=== PATIENT | male | born 1945 | race Caucasian/White ===

== ENCOUNTER 2017-04-08 12:22 | Emergency (ER) | payer MEDICARE, OTHER ==
[~2017-04-08] VITALS: Ht 180.3 cm; Wt 104.1 kg
[~2017-04-08 12:22] MED LIST: ASPI-611 PO; BISO1TAB32 PO; GLUC100015; TAMS-1 PO
--- OUTSIDE RECORDS SUMMARY | 2017-04-08 12:26 | XMS REPORT | Referral Summary ---
Author Author [facility] Organization [facility] Address Unknown Phone Unavailable Care Team Providers Care Clothing Patternmaker Name Role Phone Fly Gil Primary Care Physician [phone] Encounter Date(s): 05/31/15 - 05/31/15 [facility] [address] [id number] Discharge Diagnosis: BPH (benign prostatic hyperplasia) Discharge Disposition: 01-Home or Self Care Attending Physician: Devendra Hardwick MD Admitting Physician: Devendra Hardwick MD Vital Signs Most recent to 1 oldest [Reference Range]: Blood Pressure 124/74 mmHg [90-140/60-90 mmHg] (05/31/15 8:28 AM) Problem List Condition Effective Dates Status Health Status Informant BPH (benign Active prostatic hyperplasia)(Confirm ed) Hematuria(Confirmed) Active 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 ) Essential Active ; HTN(Confirmed) Hyperlipidemia(Confi Active rmed) Hypertension(Confirm Active ed) Primary generalized Active (osteo)arthritis(Con firmed) Lumbar disc Active herniation(Confirmed ) Lumbosacral Active spondylosis(Confirme d) Lumbosacral Active spondylosis without myelopathy (disorder)(Confirmed ) Obesity(Confirmed) Active patient Obesity(Confirmed) Active patient Obesity(Confirmed) Active patient Spinal stenosis of Active lumbar region (disorder)(Confirmed ) Thoracic or Active lumbosacral neuritis or radiculitis(Confirme d) Allergies, Adverse Reactions, Alerts Substance Reaction Severity Status azithromycin hives rash Active Medications aspirin 81 mg oral tablet 1 tabs, Oral, Daily, 0 Refill(s) Start Date: 05/13/14 Status: Ordered Chondroitin-Glucosamine 1 caps, Oral, Daily, 0 Refill(s) Start Date: 05/13/14 Status: Ordered Flomax 0.4 mg oral capsule See Instructions, TAKE ONE CAPSULE BY MOUTH ONCE A DAY, # 90 caps, 3 Refill(s), eRx: [facility] #[id number], TAKE ONE CAPSULE BY MOUTH ONCE A DAY Start Date: 09/23/14 Status: Ordered lisinopril 10 mg oral tablet 10 mg 1 tabs, Oral, Daily, # 30 tabs, 0 Refill(s) Start Date: 04/21/15 Status: Ordered Results No data available for this section Immunizations No data available for this section Procedures Procedure Date Related Diagnosis Body Site Measurement of post-voiding residual urine 05/31/15 and/or bladder capacity by ultrasound, non-imaging Cystoscopy with Transurethral Prostatect1 08/13/14 Transforaminal approach - Right L4-5, L5-S1 09/02/13 Transforaminal approach Left L4-5, L5-S1 08/18/13 Cystoscopy Functional endoscopic sinus surgery - polypectomy of nasal sinus Tonsillectomy 1auto-populated from documented surgical case Social History Social History Type Response Smoking Status Former smoker; Type: Cigarettes; Number of years: 25 Assessment and Plan Extracted from: Title: Ambulatory Patient Education Author: Devendra Hardwick MD Date: Family Medicine Benign Prostatic Hyperplasia An enlarged prostate (benign prostatic hyperplasia ) is common in older men. You may experience the following: Weak urine stream. Dribbling. Feeling like the bladder has not emptied completely. Difficulty starting urination. Getting up frequently at night to urinate. Urinating more frequently during the day. HOME CARE INSTRUCTIONS Monitor your prostatic hyperplasia for any changes. The following actions may help to alleviate any discomfort you are experiencing: Give yourself time when you urinate. Stay away from alcohol. Avoid beverages containing caffeine, such as coffee, tea, and sadie, because they can make the problem worse. Avoid decongestants, antihistamines, and some prescription medicines that can make the problem worse. Follow up with your health care provider for further treatment as recommended. SEEK MEDICAL CARE IF: You are experiencing progressive difficulty voiding. Your urine stream is progressively getting narrower. You are awaking from sleep with the urge to void more frequently. You are constantly feeling the need to void. You experience loss of urine, especially in small amounts. SEEK IMMEDIATE MEDICAL CARE IF: You develop increased pain with urination or are unable to urinate. You develop severe abdominal pain, vomiting, a high fever, or fainting. You develop back pain or blood in your urine. MAKE SURE YOU: Understand these instructions. Will watch your condition. Will get help right away if you are not doing well or get worse. Document Released: 10/29/2006 Document Revised: 07/01/2014 Document Reviewed: [facility] Patient Information 2014 [employer] [facility]. No follow up information was provided. Extracted from: Title: Office Visit Note Author: Devendra Hardwick MD Date: 05/31/15 Assessment/Plan BPH (benign prostatic hyperplasia) Future Scheduled TestsReferral* Return to Clinic 02/16/15 12:16 PM Referrals to Other Providers Referred by: Jonathan White MD
--- OUTSIDE RECORDS SUMMARY | 2017-04-08 12:26 | XMS REPORT | Referral Summary ---
Author Author [facility] Organization [facility] Address Unknown Phone Unavailable Care Team Providers Care Medical Claims Assistant Name Role Phone Fly Gil Primary Care Physician [phone] Encounter [facility] Date(s): 04/21/15 - 04/21/15 [facility], [address] [place] [address]- Discharge Disposition: 01-Home or Self Care Attending Physician: Fer Gil MD Admitting Physician: Fer Gil MD Vital Signs Most recent to 1 oldest [Reference Range]: Blood Pressure 120/60 mmHg [90-140/60-90 mmHg] (04/21/15 11:01 AM) Problem List Condition Effective Dates Status [...] DAY, # 90 caps, 3 Refill(s), [id number], TAKE ONE CAPSULE BY MOUTH ONCE A DAY Start Date: 10/20/15 Status: Ordered lisinopril 10 mg oral tablet 10 mg 1 tabs, Oral, Daily, # 30 tabs, 0 Refill(s) Start Date: 04/21/15 Status: Ordered Results No data available for this section Immunizations No data available for this section Procedures Procedure Date Related Diagnosis Body Site Cystoscopy with Transurethral Prostatect1 08/13/14 Transforaminal approach - Right L4-5, L5-S1 09/02/13 Transforaminal approach Left L4-5, L5-S1 08/18/13 Cystoscopy Functional endoscopic sinus surgery - polypectomy of nasal sinus Tonsillectomy 1auto-populated from documented surgical case Social History Social History Type Response Smoking Status Former smoker; Type: Cigarettes; Number of years: 25 Assessment and Plan Extracted from: Title: Ambulatory Patient Education Author: Fer Gil MD Date: 08/26 Family Medicine Hypertension As your heart beats, it forces blood through your arteries. This force is your blood pressure. If the pressure is too high, it is called hypertension (HTN) or high blood pressure. HTN is dangerous because you may have it and not know it. High blood pressure may mean that your heart has to work harder to pump blood. Your arteries may be narrow or stiff. The extra work puts you at risk for heart disease, stroke, and other problems. Blood pressure consists of two numbers, a higher number over a lower, 110/72, for example. It is stated as "110 over 72." The ideal is below 120 for the top number (systolic ) and under 80 for the bottom (diastolic ). Write down your blood pressure today. You should pay close attention to your blood pressure if you have certain conditions such as: Heart failure. Prior heart attack. Diabetes Chronic kidney disease. Prior stroke. Multiple risk factors for heart disease. To see if you have HTN, your blood pressure should be measured while you are seated with your arm held at the level of the heart. It should be measured at least twice. A one-time elevated blood pressure reading (especially in the Emergency Department) does not mean that you need treatment. There may be conditions in which the blood pressure is different between your right and left arms. It is important to see your caregiver soon for a recheck. Most people have essential hypertension which means that there is not a specific cause. This type of high blood pressure may be lowered by changing lifestyle factors such as: Stress. Smoking. Lack of exercise. Excessive weight. Drug/tobacco/alcohol use. Eating less salt. Most people do not have symptoms from high blood pressure until it has caused damage to the body. Effective treatment can often prevent, delay or reduce that damage. TREATMENT When a cause has been identified, treatment for high blood pressure is directed at the cause. There are a large number of medications to treat HTN. These fall into several categories, and your caregiver will help you select the medicines that are best for you. Medications may have side effects. You should review side effects with your caregiver. If your blood pressure stays high after you have made lifestyle changes or started on medicines, Your medication(s) may need to be changed. Other problems may need to be addressed. Be certain you understand your prescriptions, and know how and when to take your medicine. Be sure to follow up with your caregiver within the time frame advised ( usually within two weeks) to have your blood pressure rechecked and to review your medications. If you are taking more than one medicine to lower your blood pressure, make sure you know how and at what times they should be taken. Taking two medicines at the same time can result in blood pressure that is too low. SEEK IMMEDIATE MEDICAL CARE IF: You develop a severe headache, blurred or changing vision, or confusion. You have unusual weakness or numbness, or a faint feeling. You have severe chest or abdominal pain, vomiting, or breathing problems. MAKE SURE YOU: Understand these instructions. Will watch your condition. Will get help right away if you are not doing well or get worse. Document Released: 10/29/2006 Document Revised: 01/20/2013 Document Reviewed: [employer] Patient Information 2014 [employer]. No follow up information was provided. Extracted from: Title: Office Visit Note Author: Fer Gil MD Date: 04/21/15 Assessment/Plan BPH (benign prostatic hypertrophy) This issue is stable and appropriate refills, lab, and f/u have been discussed. Chronic sinusitis Keflex 500mg po qid for ten days. Prednisone 20mgpo daily for ten days. Hypertension This issue is stable and appropriate refills, lab, and f/u have been discussed. The patient reports their blood pressure has been stable at home and is not having any significant or related problems. There has been no chest pain, chest pressure, soa/redd. Proteinuria This issue is stable and appropriate refills, lab, and f/u have been discussed. Continue with Dr. Shauna Magallanes. Orders: cephalexin, 500 mg 1 caps, Oral, QID, X 10 days, # 40 caps, 0 Refill(s ), Pharmacy: [facility] #[id number], 1 caps Oral QID,x10 days predniSONE, 20 mg 1 tabs, Oral, Daily, X 10 days, # 10 tabs, 0 Refill(s), Pharmacy: [facility] #[id number], 1 tabs Oral Daily,x10 days Future Scheduled TestsReferral* Return to Clinic 02/16/15 12:16 PM Referrals to Other Providers Referred by: Jonathan White MD
--- OUTSIDE RECORDS SUMMARY | 2017-04-08 12:26 | XMS REPORT | Referral Summary ---
Author Author [facility] Organization [facility] Address Unknown Phone Unavailable Care Team Providers Care Back Tacker Name Role Phone LeeannacaseyFly barr Primary Care Physician [phone] Encounter Date(s): 01/10/16 - 01/10/16 [facility] [address] [place] [address] Discharge Diagnosis: Incidental finding of low blood pressure Discharge Diagnosis: Acute sinusitis Discharge Disposition: 01-Home or Self Care Attending Physician: Adilene Fitzgerald PA-C Admitting Physician: Adilene Fitzgerald PA-C Vital Signs Most recent to 1 oldest [Reference Range]: Peripheral Pulse 78 bpm Rate [60-100 bpm] (01/10/16 9:37 AM) Respiratory Rate 18 br/min [14-20 br/min] (01/10/16 9:37 AM) Blood Pressure 98/58 mmHg [90-140/60-90 mmHg] (01/10/16 9:37 AM) Problem List Condition Effective Dates Status Health Status Informant BPH (benign Active prostatic hyperplasia)(Confirm ed) Hematuria(Confirmed) Active 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 ) Essential Active ; HTN(Confirmed) Hyperlipidemia(Confi Active rmed) Hypertension(Confirm Active ed) Primary generalized Active (osteo)arthritis(Con firmed) Lumbar disc Active herniation(Confirmed ) Lumbosacral Active spondylosis without myelopathy (disorder)(Confirmed ) Lumbosacral Active spondylosis(Confirme d) Obesity(Confirmed) Active patient Obesity(Confirmed) Active patient Obesity(Confirmed) Active patient Spinal stenosis of Active lumbar region (disorder)(Confirmed ) Thoracic or Active lumbosacral neuritis or radiculitis(Confirme d) Allergies, Adverse Reactions, Alerts Substance Reaction Severity Status azithromycin hives rash Active Medications aspirin 81 mg oral tablet 1 tabs, Oral, Daily, 0 Refill(s) Start Date: 05/13/14 Status: Ordered Augmentin 875 mg-125 mg oral tablet 1 tabs, Oral, q12hr, X 7 days, # 14 tabs, 0 Refill(s), Pharmacy: [facility] #[id number] Start Date: 01/10/16 Stop Date: 01/17/16 Status: Ordered Chondroitin-Glucosamine 1 caps, Oral, Daily, 0 Refill(s) Start Date: 05/13/14 Status: Ordered Flomax 0.4 mg oral capsule See Instructions, TAKE ONE CAPSULE BY MOUTH ONCE A DAY, # 90 caps, 3 Refill(s), eRx: [facility] #[id number], TAKE ONE CAPSULE BY MOUTH ONCE A DAY Start Date: 10/20/15 Status: Ordered lisinopril 10 mg oral tablet 10 mg 1 tabs, Oral, Daily, # 30 tabs, 0 Refill(s) Start Date: 04/21/15 Status: Ordered niacin 1000 mg oral tablet, extended release 1,000 mg 1 tabs, Oral, Bedtime (once a day), # 90 tabs, 0 Refill(s) Start Date: 01/10/16 Status: Ordered Results No data available for [...] Extracted from: Title: Ambulatory Patient Education Author: Adilene Fitzgerald PA-C Date : 01/10/16 Allergy Sinusitis, Adult Sinusitis is redness, soreness, and inflammation of the paranasal sinuses. Paranasal sinuses are air pockets within the bones of your face. They are located beneath your eyes, in the middle of your forehead, and above your eyes. In healthy paranasal sinuses, mucus is able to drain out, and air is able to circulate through them by way of your nose. However, when your paranasal sinuses are inflamed, mucus and air can become trapped. This can allow bacteria and other germs to grow and cause infection. Sinusitis can develop quickly and last only a short time (acute) or continue over a long period (chronic). Sinusitis that lasts for more than 12 weeks is considered chronic. CAUSES Causes of sinusitis include: Allergies. Structural abnormalities, such as displacement of the cartilage that separates your nostrils (deviated septum), which can decrease the air flow through your nose and sinuses and affect sinus drainage. Functional abnormalities, such as when the small hairs (cilia) that line your sinuses and help remove mucus do not work properly or are not present. SIGNS AND SYMPTOMS Symptoms of acute and chronic sinusitis are the same. The primary symptoms are pain and pressure around the affected sinuses. Other symptoms include: Upper toothache. Earache. Headache. Bad breath. Decreased sense of smell and taste. A cough, which worsens when you are lying flat. Fatigue. Fever. Thick drainage from your nose, which often is green and may contain pus ( purulent). Swelling and warmth over the affected sinuses. DIAGNOSIS Your health care provider will perform a physical exam. During your exam, your health care provider may perform any of the following to help determine if you have acute sinusitis or chronic sinusitis: Look in your nose for signs of abnormal growths in your nostrils (nasal polyps). Tap over the affected sinus to check for signs of infection. View the inside of your sinuses using an imaging device that has a light attached (endoscope). If your health care provider suspects that you have chronic sinusitis, one or more of the following tests may be recommended: Allergy tests. Nasal culture. A sample of mucus is taken from your nose, sent to a lab, and screened for bacteria. Nasal cytology. A sample of mucus is taken from your nose and examined by your health care provider to determine if your sinusitis is related to an allergy. TREATMENT Most cases of acute sinusitis are related to a viral infection and will resolve on their own within 10 days. Sometimes, medicines are prescribed to help relieve symptoms of both acute and chronic sinusitis. These may include pain medicines, decongestants, nasal steroid sprays, or saline sprays. However, for sinusitis related to a bacterial infection, your health care provider will prescribe antibiotic medicines. These are medicines that will help kill the bacteria causing the infection. Rarely, sinusitis is caused by a fungal infection. In these cases, your health care provider will prescribe antifungal medicine. For some cases of chronic sinusitis, surgery is needed. Generally, these are cases in which sinusitis recurs more than 3 times per year, despite other treatments. HOME CARE INSTRUCTIONS Drink plenty of water. Water helps thin the mucus so your sinuses can drain more easily. Use a humidifier. Inhale steam 34 times a day (for example, sit in the bathroom with the shower running). Apply a warm, moist washcloth to your face 34 times a day, or as directed by your health care provider. Use saline nasal sprays to help moisten and clean your sinuses. Take medicines only as directed by your health care provider. If you were prescribed either an antibiotic or antifungal medicine, finish it all even if you start to feel better. SEEK IMMEDIATE MEDICAL CARE IF: You have increasing pain or severe headaches. You have nausea, vomiting, or drowsiness. You have swelling around your face. You have vision problems. You have a stiff neck. You have difficulty breathing. This information is not intended to replace advice given to you by your health care provider. Make sure you discuss any questions you have with your health care provider. Document Released: 10/29/2006 Document Revised: 08/17/2015 Document Reviewed: [facility] Patient Information 2015 [employer]. Family Medicine Hypotension As your heart beats, it forces blood through your arteries. This force is your blood pressure. If your blood pressure is too low for you to go about your normal activities or to support the organs of your body, you have hypotension. Hypotension is also referred to as low blood pressure. When your blood pressure becomes too low, you may not get enough blood to your brain. As a result, you may feel weak, feel lightheaded, or develop a rapid heart rate. In a more severe case, you may faint. CAUSES Various conditions can cause hypotension. These include: Blood loss. Dehydration. Heart or endocrine problems. . Severe infection. Not having a well-balanced diet filled with needed nutrients. Severe allergic reactions (anaphylaxis). Some medicines, such as blood pressure medicine or water pills (diuretics), may lower your blood pressure below normal. Sometimes taking too much medicine or taking medicine not as directed can cause hypotension. TREATMENT Hospitalization is sometimes required for hypotension if fluid or blood replacement is needed, if time is needed for medicines to wear off, or if further monitoring is needed. Treatment might include changing your diet, changing your medicines (including medicines aimed at raising your blood pressure), and use of support stockings. HOME CARE INSTRUCTIONS Drink enough fluids to keep your urine clear or pale yellow. Take your medicines as directed by your health care provider. Get up slowly from reclining or sitting positions. This gives your blood pressure a chance to adjust. Wear support stockings as directed by your health care provider. Maintain a healthy diet by including nutritious food, such as fruits, vegetables, nuts, whole grains, and lean meats. SEEK MEDICAL CARE IF: You have vomiting or diarrhea. You have a fever for more than 23 days. You feel more thirsty than usual. You feel weak and tired. SEEK IMMEDIATE MEDICAL CARE IF: You have chest pain or a fast or irregular heartbeat. You have a loss of feeling in some part of your body, or you lose movement in your arms or legs. You have trouble speaking. You become sweaty or feel lightheaded. You faint. MAKE SURE YOU: Understand these instructions. Will watch your condition. Will get help right away if you are not doing well or get worse. This information is not intended to replace advice given to you by your health care provider. Make sure you discuss any questions you have with your health care provider. Document Released: 10/29/2006 Document Revised: 08/19/2014 Document Reviewed: [facility] Patient Information 2015 [employer]. No follow up information was provided. Extracted from: Title: Office Visit Note- URI Author: Adilene Fitzgerald PA-C Date: Assessment/Plan Acute sinusitis Will treat with Augmentin x 1 week. Also advised trying Flonase nasal spray daily as well. Call if not improving. Ordered: Office Visit Level 4 Est 26796 Incidental finding of low blood pressure For today, I d/w pt to check BP later today. Try and increase fluids today and also add a little salt to the diet today. Is DC'ing Flomaxsoon. Advised to check BP tomorrow AM before taking Lisinopril. If SBP <100, hold lisinopril. RTC ifhaving continuing issues with hypotension, or if sx develop. Ordered: Office Visit Level 4 Est 42668 Orders: amoxicillin-clavulanate, 1 tabs, Oral, q12hr, X 7 days, # 14 tabs, 0 Refill(s), Pharmacy: [facility] #[id number] Future Scheduled TestsReferral* Return to Clinic 02/16/15 12:16 PM Referrals to Other Providers Referred by: Jonathan White MD
--- OUTSIDE RECORDS SUMMARY | 2017-04-08 12:26 | XMS REPORT | Referral Summary ---
Author Author [facility] Organization [facility] Address Unknown Phone Unavailable Care Team Providers Care Aviation Technician Aircraft Name Role Phone LeeannaFly kohli Primary Care Physician [phone] Encounter VC Date(s): 09/15/16 - 09/15/16 [facility] [address] [place] [address] Discharge Disposition: 01-Home or Self Care Attending Physician: Shimon Anderson MD Admitting Physician: Shimon Anderson MD Vital Signs No data available for this section Problem List Condition Effective Dates Status Health [...] 0 Refill(s) Start Date: 05/13/14 Status: Ordered lisinopril 10 mg oral tablet [...] Number of years: 26 Assessment and Plan No data available for this section
--- OUTSIDE RECORDS SUMMARY | 2017-04-08 12:26 | XMS REPORT | Referral Summary ---
Author Author [facility] Organization [facility] Address Unknown Phone Unavailable Care Team Providers Care Executive Director Name Role Phone Fly Gil Primary Care Physician [phone] Encounter Date(s): 05/31/15 - 05/31/15 [facility] [address] [address] Discharge Diagnosis: BPH (benign prostatic hyperplasia) Discharge [...] DAY, # 90 caps, 3 Refill(s), eRx: [facility] #[id number], TAKE ONE CAPSULE BY MOUTH ONCE A [...] Released: 10/29/2006 Document Revised: 07/01/2014 Document Reviewed: [facility] Patient Information 2014 [employer] [facility]. No follow up information was provided. Extracted from: Title: Office Visit Note Author: Devendra Hardwick MD Date: 05/31/15 Assessment/Plan BPH (benign prostatic hyperplasia) Future Scheduled TestsReferral* Return to Clinic 02/16/15 12:16 PM Referrals to Other Providers Referred by: Jonathan White MD
--- OUTSIDE RECORDS SUMMARY | 2017-04-08 12:26 | XMS REPORT | Referral Summary ---
Author Author [facility] Organization [facility] Address Unknown Phone Unavailable Care Team Providers Care Loss Prevention Agent Name Role Phone Fly Gil Primary Care Physician [phone] Encounter Date(s): 05/31/15 - 05/31/15 [facility] [address] [address] Discharge Diagnosis: BPH (benign prostatic hyperplasia) [...] DAY, # 90 caps, 3 Refill(s), eRx: [facility] #[id number], TAKE ONE CAPSULE BY MOUTH ONCE A [...] Released: 10/29/2006 Document Revised: 07/01/2014 Document Reviewed: [facility] Patient Information [address] [employer] [address] [facility]. No follow up information was provided. Extracted from: Title: Office Visit Note Author: Devendra Hardwick MD Date: 05/31/15 Assessment/Plan BPH (benign prostatic hyperplasia) Future Scheduled TestsReferral* Return to Clinic 02/16/15 12:16 PM Referrals to Other Providers Referred by: Jonathan White MD
--- OUTSIDE RECORDS SUMMARY | 2017-04-08 12:26 | XMS REPORT | Continuity of Care Document ---
Author Author Justin HOFFMANN, [facility] Address [address] [place] [address] Phone Care Team Providers Care Conservation Policy Analyst Name Role Phone Fer Gil PP Unavailable Fer Gil RP Unavailable Payers Payer name Insurance type Covered alliance party ID Authorization(s) Unknown Problems Condition Effective Dates (start - stop) Clinical Status Sciatica Due To Displacement Of Lumbar Disc - *Chronic Spinal stenosis of lumbar region - *Chronic Radiculitis, Thoracic or Lumbar - *Chronic Lumbosacral spondylosis without myelopathy - *Chronic Pain in limb - *Acute Gout, unspecified - *Acute Hypertension, Benign - *Chronic Other and unspecified hyperlipidemia - *Chronic BPH - *Chronic Benign neoplasm of unspecified site - *Controlled Chronic maxillary sinusitis - *Controlled Hypertension, Benign - *Chronic Other and unspecified hyperlipidemia - *Chronic History of syncope - *Controlled Plantar fascial fibromatosis - *Chronic Spinal stenosis of lumbar region - *Chronic Radiculitis, Thoracic or Lumbar - *Chronic Sciatica Due To Displacement Of Lumbar Disc - *Chronic Spinal stenosis of lumbar region - Chronic Radiculitis, Thoracic or Lumbar - Chronic Sciatica Due To Displacement Of Lumbar Disc - Chronic Low back pain - *Chronic Pain in limb - *Chronic Plantar fascial fibromatosis - *Chronic Hypertension, benign - *Chronic Hyperlipidemia, NOS - *Chronic Other seborrheic keratosis - *Chronic Ganglion of tendon sheath - *Chronic Pain in limb - *Chronic BPH - *Chronic Spinal stenosis of lumbar region - *Chronic Sciatica Due To Displacement Of Lumbar Disc - *Chronic Radiculitis, Thoracic or Lumbar - *Chronic Spinal stenosis of lumbar region - Chronic Sciatica Due To Displacement Of Lumbar Disc - Chronic Radiculitis, Thoracic or Lumbar - Chronic Routine Medical Exam - Routine Hypertension, Benign - *Controlled Other and unspecified hyperlipidemia - *Controlled Plantar fascial fibromatosis - *Acute Edema - *Acute Sciatica Due To Displacement Of Lumbar Disc - *Symptomatic Spinal stenosis of lumbar region - *Symptomatic Radiculitis, Thoracic or Lumbar - *Symptomatic Inverted papilloma - *Chronic Unspecified nasal polyp - Urticaria, unspecified - Improved Urticaria, unspecified - *Acute Other and unspecified hyperlipidemia - *Chronic Hypertension, Benign - *Chronic BPH - *Chronic Osteoarthrosis, generalized, involving unspecified site - * Chronic Lumbago - *Chronic Right foot pain - *Acute Pain in limb - *Acute Other and unspecified hyperlipidemia - *Chronic Hypertension, Benign - *Chronic Other specified urticaria - *Acute Sciatica Due To Displacement Of Lumbar Disc - *Chronic Spinal stenosis of lumbar region - *Chronic Radiculitis, Thoracic or Lumbar - *Chronic Sciatica Due To Displacement Of Lumbar Disc - Chronic Spinal stenosis of lumbar region - Chronic Radiculitis, Thoracic or Lumbar - Chronic Family History Family Member Diagnosis Age At Onset Status Father (Unknown) CAD Yes Mother (Unknown) old age Yes Social History Social History Element Description Quantity Unknown Allergies, Adverse Reactions, Alerts Substance Reaction Severity Status PROCAINE HCL Unknown AZITHROMYCIN hives rash Unknown Medications Medication Instructions Dosage Effective Dates (start - stop) Status bisoprolol 5 mg-hydrochlorothiazide 6.25 mg tablet Take 1 tablet by mouth every day. - Active atorvastatin 40 mg tablet take 1 tablet (40MG) by oral route every day 40 MG - Active Immunizations Vaccine Date Status Comments Unknown Results Test Name Date and Time Measure Units Reference Range Abnormal Flag Comments Unknown Vital Signs Date / Time: Height Weight Pulse Rate Blood Pressure Temperature /16:00:00 71.00 in 225.00 lbs 120/68 mm[Hg] 97.3 F Procedures Procedure Date Unknown Encounters Encounter Location Date Patient Visit [facility] Pain Patient Visit [facility] FM Patient Visit [facility] Mur Card Patient Visit [facility] FM Patient Visit [facility] ENT Patient Visit [facility] [place] Patient Visit [facility] Pain Patient Visit [facility] FM Patient Visit [facility] Pain Patient Visit [facility] FM Patient Visit [facility] FM Patient Visit [facility] Pain Patient Visit [facility] ENT Patient Visit [facility] FM Patient Visit [facility] FM Patient Visit [facility] FM Patient Visit [facility] Care Patient Visit [facility] FM Patient Visit [facility] FM Patient Visit [facility] Pain Patient Visit [facility] Advance Directives Directive Effective Date Unknown
--- OUTSIDE RECORDS SUMMARY | 2017-04-08 12:26 | XMS REPORT | Referral Summary ---
Author Author [facility] Organization [facility] Address Unknown Phone Unavailable Care Team Providers Care Assembler Tester Name Role Phone Fly Gil Primary Care Physician [phone] Encounter Date(s): 05/31/15 - 05/31/15 [facility] [address] [id number] Discharge Diagnosis: BPH (benign prostatic hyperplasia) [...] DAY, # 90 caps, 3 Refill(s), eRx: [facility] #[id number], TAKE ONE CAPSULE BY MOUTH ONCE A [...] Released: 10/29/2006 Document Revised: 07/01/2014 Document Reviewed: [facility] Patient Information 2014 [facility]. No follow up information was provided. Extracted from: Title: Office Visit Note Author: Devendra Hardwick MD Date: 05/31/15 Assessment/Plan BPH (benign prostatic hyperplasia) Future Scheduled TestsReferral* Return to Clinic 02/16/15 12:16 PM Referrals to Other Providers Referred by: Jonathan White MD
--- OUTSIDE RECORDS SUMMARY | 2017-04-08 12:26 | XMS REPORT | Continuity of Care Document ---
Author Author [facility] Organization [facility] Address Unknown Phone Unavailable Allergies Active Description Code Type Severity Reaction Onset Reported/Identified Relationship to Patient Clinical Status Yes azithromycin NKMA N/A hives rash 03/10/2014 Medications Problems Procedures Results Test Result Range CBC With Platelet and Differential - 01/15/17 08:40 Absolute Basophils 0.05 10*3/uL 0.00- 0.20 Absolute Eosinophils 0.11 10*3/uL 0.00- 0.50 Absolute Lymphocytes 1.46 10*3/uL 0.80- 3.30 Absolute Monocytes 0.79 10*3/uL 0.30- 1.00 Absolute Neutrophils 4.54 10*3/uL 1.90- 7.00 Basophils 1 % 0-2 Eosinophils 2 % 0-4 HCT 45.5 % 42.0-52.0 HGB 14.7 g/dL 14.0-18.0 Immature Granulocytes 0.3 % 0.0-1.0 Lymphocytes 21 % 20-46 MCH 30.1 pg 27.0-32.0 MCHC 32.3 g/dL 32.0-36.0 MCV 93.2 fL 82.0-99.0 Monocytes 11 % 4-11 MPV 8.8 fL 8.8-14.8 Neutrophils 65 % 51-75 Platelet Count 308 K/uL 150-400 RBC 4.88 10*6/uL 4.60-6.20 RDW 13.0 % 11.5-14.5 WBC 7.0 K/uL 4.8-10.8 Comprehensive Metabolic Panel (CMP) - 01/15/17 08:40 Albumin 3.7 g/dL 3.4-4.8 Alkaline Phosphatase 124 U/L 40-150 ALT (SGPT) 23 U/L 0-55 Anion Gap 4 NA 3-20 AST (SGOT) 17 U/L 5-34 Bilirubin Total 0.5 mg/dL 0.2-1.2 BUN 16 mg/dL 8-26 Calcium 8.9 mg/dL 8.4-10.2 Chloride 112 mEq/L 99-111 CO2 25 mEq/L 23-31 Creatinine 0.89 mg/dL 0.72-1.25 Globulin 2.9 g/dL 1.8-4.0 Glucose 88 mg/dL 70-99 Potassium 5.1 mEq/L 3.5-5.2 Protein 6.6 g/dL 6.0-7.6 Sodium 141 mEq/L 135-144 Lipid Panel - 01/15/17 08:40 Cardiac Risk 8.4 0.0-5.7 Cholesterol 268 mg/dL 0-199 HDL Cholesterol 32 mg/dL 40-84 LDL Cholesterol 197 mg/dL 0-130 Triglycerides 196 mg/dL 0-149 VLDL Cholesterol 39 mg/dL 0-28 eGFR - 01/15/17 08:40 eGFR >60 mL/min >60 PSA - 01/15/17 08:40 PSA 3.0 ng/mL 0.0-6.5 Urinalysis with reflex microscopic - 01/15/17 09:08 Appearance Clear NA Bilirubin Negative NA Negative Blood Pos 1+ NA Negative Color Yellow NA Glucose, Urine Negative Negative Ketones Negative Negative Leukocyte Esterase Negative NA Negative Nitrites Negative NA Negative pH 6.0 NA 5.0-8.0 Protein Negative Negative Specific [place] 1.020 NA 1.003-1.030 UA Collection type Voided NA Urobilinogen 0.2 mg/dL <1.0 Urine Microscopic - 01/15/17 09:08 Epithelial Cells 2 /HPF Hyaline Casts 4 /LPF 0-3 RBC, Urine 0 /HPF 0-4 WBC, Urine 5 /HPF 0-4 Encounters ACCT No. Visit Date/Time Discharge Status Pt. Type Provider Facility Loc./Unit Complaint [id number] 02/02/2014 15:59:00 02/02/2014 23 :59:59 [facility] Outpatient [id number] 09/02/2013 07:23:00 09/02/2013 23 :59:59 CLS Outpatient
--- OUTSIDE RECORDS SUMMARY | 2017-04-08 12:26 | XMS REPORT | Referral Summary ---
Author Author [facility] Organization [facility] Address Unknown Phone Unavailable Care Team Providers Care Mophead Sewer Name Role Phone Fly Gil Primary Care Physician [phone] Encounter VC Date(s): 01/17/16 - 01/17/16 [facility] [address] [place] [id number] Discharge Disposition: 01-Home or Self Care Attending Physician: Fer Gil MD Admitting Physician: Fer Gil MD Vital Signs Most recent to 1 oldest [Reference Range]: Blood Pressure 110/60 mmHg [90-140/60-90 mmHg] (01/17/16 1:56 PM) Problem List Condition Effective Dates Status Health [...] 0 Refill(s) Start Date: 05/13/14 Status: Ordered doxycycline hyclate 100 mg oral capsule 100 mg 1 caps, Oral, BID, X 10 days, # 20 caps, 0 Refill(s), Pharmacy: [facility] #[id number], 1 caps Oral BID,x10 days Start Date: 01/17/16 Stop Date: 01/27/16 Status: Ordered Flomax 0.4 mg oral capsule See Instructions, TAKE ONE CAPSULE BY MOUTH ONCE A DAY, # 90 caps, 3 Refill(s), eRx: [facility] #[id number], TAKE ONE CAPSULE BY MOUTH ONCE A DAY Start Date: 10/20/15 Status: Ordered lisinopril 10 mg oral tablet 10 mg 1 tabs, Oral, Daily, # 30 tabs, 0 Refill(s) Start Date: 04/21/15 Status: Ordered niacin 1000 mg oral tablet, extended release 1,000 mg 1 tabs, Oral, Bedtime (once a day), # 90 tabs, 0 Refill(s) Start Date: 01/10/16 Status: Ordered predniSONE 20 mg oral tablet 20 mg 1 tabs, Oral, Daily, X 10 days, # 10 tabs, 0 Refill(s), Pharmacy: [facility] #[id number], 1 tabs Oral Daily,x10 days Start Date: 01/17/16 Stop Date: 01/27/16 Status: Ordered Results No data available for [...] Patient Education Author: Fer Gil MD Date: 01/17/16 Allergy Cough, Adult A cough is a reflex that helps clear your throat and airways. It can help heal the body or may be a reaction to an irritated airway. A cough may only last 2 or 3 weeks (acute) or may last more than 8 weeks (chronic). CAUSES Acute cough: Viral or bacterial infections. Chronic cough: Infections. Allergies. Asthma. Post-nasal drip. Smoking. Heartburn or acid reflux. Some medicines. Chronic lung problems (COPD). Cancer. SYMPTOMS Cough. Fever. Chest pain. Increased breathing rate. High-pitched whistling sound when breathing (wheezing). Colored mucus that you cough up (sputum). TREATMENT A bacterial cough may be treated with antibiotic medicine. A viral cough must run its course and will not respond to antibiotics. Your caregiver may recommend other treatments if you have a chronic cough. HOME CARE INSTRUCTIONS Only take [id number] or prescription medicines for pain, discomfort , or fever as directed by your caregiver. Use cough suppressants only as directed by your caregiver. Use a cold steam vaporizer or humidifier in your bedroom or home to help loosen secretions. Sleep in a semi-upright position if your cough is worse at night. Rest as needed. Stop smoking if you smoke. SEEK IMMEDIATE MEDICAL CARE IF: You have pus in your sputum. Your cough starts to worsen. You cannot control your cough with suppressants and are losing sleep. You begin coughing up blood. You have difficulty breathing. You develop pain which is getting worse or is uncontrolled with medicine. You have a fever. MAKE SURE YOU: Understand these instructions. Will watch your condition. Will get help right away if you are not doing well or get worse. This information is not intended to replace advice given to you by your health care provider. Make sure you discuss any questions you have with your health care provider. Document Released: 04/26/2012 Document Revised: 01/20/2013 Document Reviewed: [facility] Patient Information 2015 [employer]. No follow up information was provided. Extracted from: Title: Office Visit Note Author: Fer Gil MD Date: 01/17/16 Future Scheduled TestsReferral* Return to Clinic 02/16/15 12:16 PM Referrals to Other Providers Referred by: Jonathan White MD
--- OUTSIDE RECORDS SUMMARY | 2017-04-08 12:26 | XMS REPORT | Continuity of Care Document ---
Author Author [facility] Organization [facility] Address Unknown Phone Unavailable Support Name Relationship Address Phone FRANK WALTON MD Caregiver [address] [place] [phone] CARLITOS VICENTE MD Caregiver [address] [place] [phone] SIMIN GARCIA Next Of Kin [address] [place] [address] Insurance Providers Payer Name Policy Number Subscriber Name Relationship Medicare [id number] Ramon Garcia 19 Self [employer] Select Plan 65 [id number] Ramon Garcia 19 Self Problems Medical Problems Problem Onset Date Status Urinary retention Unknown Active Davis catheter problem Unknown Active Davis catheter problem Unknown Active Medications Medication Dose Route Sig Days/Qty Instructions Order Date Discontinued Date Status Aspirin 81 Mg PO DAILY 03/26/09 Active Bisoprol/Hydrochlorothiazide 1 Tab PO DAILY 03/26/09 Active Tamsulosin HCl 0.4 Mg PO BEDTIME Take 1 capsule, by mouth, one time a day at BEDTIME. 09/02/14 Active Glucosamine Sulfate 2Kcl DAILY 09/02/14 Active Social History Social History Problem Response Recorded Date/Time Smoking Status Never smoker 09/02/2014 11:50pm Hx Alcohol Use No 09/02/2014 11:50pm Hospital Discharge Instructions No hospital discharge instructions. Plan of Care No plan of care. Functional Status Query Response Date Recorded Physical Hygiene Self September 02, 2014 11:50pm Disabilities None September 02, 2014 11:50pm Devices Used None September 02, 2014 11:50pm Dressing Self September 02, 2014 11:50pm Ambulation Self September 02, 2014 11:50pm Diet Self September 02, 2014 11:50pm Mental Status Alert Oriented September 03, 2014 12:02am Disabilities None September 02, 2014 11:50pm Devices Used None September 02, 2014 11:50pm Physical Hygiene Self September 02, 2014 11:50pm Dressing Self September 02, 2014 11:50pm Ambulation Self September 02, 2014 11:50pm Diet Self September 02, 2014 11:50pm Allergies, Adverse Reactions, Alerts Allergen Type Severity Reaction Status Last Updated Azithromycin Allergy Unknown Active 09/03/14 Procaine Allergy Unknown Active 09/03/14 Immunizations No immunization records. Vital Signs Acute Vital Signs Vital Response Date/Time Temperature (Fahrenheit) 97.1 deg F (96.8 - 99.1) Temperature (Calculated Celsius) 36.68925 degrees C (36.0 - 37.3) Pulse Rate (adult) 71 bpm (60 - 100) Respiratory Rate 18 breaths/min (10 - 20) O2 Sat by Pulse Oximetry 92 % (90 - 100) Blood Pressure 118/60 mm Hg Height 5 ft 11 in Weight 237 lb Body Mass Index 33.0 kg/m^2 Results Test Source Date Result Interp. Ref. Range Comments Creatinine February 09, 2012 7:49am 0.8 MG/DL N 0.8-1.5 Urine Bacteria September 02, 2014 2:30am None seen - Has specimen been collected/obtained? Y Urine Bilirubin September 02, 2014 2:30am Negative - Has specimen been collected/obtained? Y Urine Blood September 02, 2014 2:30am 3+ H - Has specimen been collected/ obtained? Y Urine Collection Type September 02, 2014 2:30am Davis indwelling - Has specimen been collected/obtained? Y Urine Color September 02, 2014 2:30am Red - Has specimen been collected /obtained? Y Urine Drug Screen (T) July 31, 2013 9:34am Sent out - Urine Glucose (UA) September 02, 2014 2:30am Negative - Has specimen been collected/obtained? Y Urine Ketones September 02, 2014 2:30am Negative - Has specimen been collected/obtained? Y Urine Leukocyte Esterase September 02, 2014 2:30am Negative - Has specimen been collected/obtained? Y Urine Nitrite September 02, 2014 2:30am Negative - Has specimen been collected/obtained? Y Urine Protein September 02, 2014 2:30am 3+ H - Has specimen been collected/obtained? Y Urine RBC September 02, 2014 2:30am Tntc /HPF - Has specimen been collected/obtained? Y Urine Specific [place] September 02, 2014 2:30am 1.025 - Has specimen been collected/obtained? Y Urine Turbidity September 02, 2014 2:30am Cloudy - Has specimen been collected/obtained? Y Urine Urobilinogen September 02, 2014 2:30am 0.2 EU/DL - Has specimen been collected/obtained? Y Urine WBC September 02, 2014 2:30am 10-20 /HPF H - Has specimen been collected/obtained? Y Urine pH September 02, 2014 2:30am 7.0 - Has specimen been collected/ obtained? Y Lab Scanned Report July 31, 2013 12:41pm [facility] [id number] - Glomerular Filtration Rate Calc February 09, 2012 7:49am 97 - Procedures No known history of procedures. Encounters Encounter Location Date/Time Departed Emergency Room [facility] 09/02/14 10:53pm Departed Emergency Room [facility] 09/02/14 1:52am Recent Diagnosis
--- OUTSIDE RECORDS SUMMARY | 2017-04-08 12:26 | XMS REPORT | Referral Summary ---
Author Author [facility] Organization [facility] Address Unknown Phone Unavailable Care Team Providers Care Staff Attorney Name Role Phone Fly Gil Primary Care Physician [phone] Encounter Date(s): 05/31/15 - 05/31/15 [facility] [address] [id number] Discharge Diagnosis: BPH (benign prostatic [...] DAY, # 90 caps, 3 Refill(s), eRx: [facility] #[id number], TAKE ONE CAPSULE BY MOUTH ONCE A [...] Released: 10/29/2006 Document Revised: 07/01/2014 Document Reviewed: [facility] Patient Information 2014 [facility]. No follow up information was provided. Extracted from: Title: Office Visit Note Author: Devendra Hardwick MD Date: 05/31/15 Assessment/Plan BPH (benign prostatic hyperplasia) Future Scheduled TestsReferral* Return to Clinic 02/16/15 12:16 PM Referrals to Other Providers Referred by: Jonathan White MD
--- OUTSIDE RECORDS SUMMARY | 2017-04-08 12:27 | XMS REPORT | Referral Summary ---
Author Author [facility] Organization [facility] Address Unknown Phone Unavailable Care Team Providers Care Engine Repair Supervisor Name Role Phone Fly Gil Primary Care Physician [phone] Encounter Date(s): 06/05/16 - 06/05/16 [facility] [address] [id number] Discharge Diagnosis: BPH with urinary obstruction Discharge Disposition: 01-Home or Self Care Attending Physician: Devendra Hardwick MD Admitting Physician: Devendra Hardwick MD Vital Signs Most recent to 1 oldest [Reference Range]: Blood Pressure 112/68 mmHg [90-140/60-90 mmHg] (06/05/16 8:45 AM) Problem List Condition Effective Dates Status [...] Body Site Measurement of post-voiding residual urine 06/05/16 and/or bladder capacity by ultrasound, non-imaging Cystoscopy with Transurethral Prostatect1 08/13/14 Transforaminal approach - Right L4-5, L5-S1 09/02/13 Transforaminal approach Left L4-5, L5-S1 08/18/13 Cystoscopy Functional endoscopic sinus surgery - polypectomy of nasal sinus Tonsillectomy 1auto-populated from documented surgical case Social History Social History Type Response Smoking Status Former smoker; Type: Cigarettes; Number of years: 25 Assessment and Plan Extracted from: Title: Office Visit Note Author: Devendra Hardwick MD Date: 06/05/16 Assessment/Plan 1.BPH with urinary obstruction
--- OUTSIDE RECORDS SUMMARY | 2017-04-08 12:27 | XMS REPORT | Referral Summary ---
Author Author [facility] Organization [facility] Address Unknown Phone Unavailable Care Team Providers Care Credit Interviewer Name Role Phone Fly Gil Primary Care Physician [phone] Encounter Date(s): 05/31/15 - 05/31/15 [facility] [address] [id number] Discharge Diagnosis: BPH (benign [...] DAY, # 90 caps, 3 Refill(s), eRx: [facility] #[id number], TAKE ONE CAPSULE BY MOUTH ONCE A [...] For The Chronically Ill Patient Information 2014 [employer] [facility]. No follow up information was provided. Extracted from: Title: Office Visit Note Author: Devendra Hardwick MD Date: 05/31/15 Assessment/Plan BPH (benign prostatic hyperplasia) Future Scheduled TestsReferral* Return to Clinic 02/16/15 12:16 PM Referrals to Other Providers Referred by: Jonathan White MD
--- OUTSIDE RECORDS SUMMARY | 2017-04-08 12:27 | XMS REPORT | Referral Summary ---
Author Organization Unknown Address Unknown Phone Unavailable Care Team Providers Care Inserter Promotional Item Name Role Phone Fly Gil Primary Care Physician [phone] Encounter VC Date(s): 11/27/14 - 11/27/14 [facility] [address] [place] [address] Discharge Diagnosis: BPH (benign prostatic hyperplasia) Discharge Disposition: Home or Self Care Attending Physician: Devendra Hardwick MD Admitting Physician: Devendra Hardwick MD Vital Signs No data available for [...] without myelopathy (disorder)(Confirmed ) Obesity(Confirmed) Active patient Spinal stenosis of Active lumbar region (disorder)(Confirmed ) Thoracic or Active lumbosacral neuritis or radiculitis(Confirme d) Allergies, Adverse Reactions, Alerts Substance Reaction Severity Status azithromycin hives rash Active Medications aspirin 81 mg oral tablet 1 tabs, Oral, Daily, 0 Refill(s) Start Date: 05/13/14 Status: Ordered bisoprolol-hydrochlorothiazide 5 mg-6.25 mg oral tablet See Instructions, TAKE ONE TABLET BY MOUTH EVERY DAY, # 30 tabs, 2 Refill(s), eRx: [facility] #[id number], TAKE ONE TABLET BY MOUTH EVERY DAY Special Instructions: TAKE ONE TABLET BY MOUTH EVERY DAY Start Date: 08/17/14 Status: Ordered Chondroitin-Glucosamine 1 caps, Oral, Daily, 0 Refill(s) Start Date: 05/13/14 Status: Ordered Flomax 0.4 mg oral capsule See Instructions, TAKE ONE CAPSULE BY MOUTH ONCE A DAY, # 90 caps, 3 Refill(s), eRx: [facility] #[id number], TAKE ONE CAPSULE BY MOUTH ONCE A DAY Special Instructions: TAKE ONE CAPSULE BY MOUTH ONCE A DAY Start Date: 09/23/14 Status: Ordered Results No data available for this section Immunizations No data available for this section Procedures Procedure Date Related Diagnosis Body Site Complex uroflowmetry (eg, calibrated 11/27/14 electronic equipment) Measurement of post-voiding residual urine 11/27/14 and/or bladder capacity by ultrasound, non-imaging Cystoscopy [...] MD Date: Family Medicine Benign Prostatic Hyperplasia You have an enlarged prostate. This is common in elderly males. It is called BPH. This stands for benign prostate hyperplasia. The prostate gland is located in base of the bladder. When it grows, the prostate blocks the urethra. This is the tube which drains urine from the bladder. SYMPTOMS Weak urine stream. Dribbling. Feeling like the bladder has not emptied completely. Difficulty starting urination. Getting up frequently at night to urinate. Urinating more frequently during the day. Complete urinary blockage or severe pain with urination requires immediate attention. DIAGNOSIS Your caregiver often has a good idea what is wrong by taking a history and doing a physical exam. Special x-rays may be done. TREATMENT For mild problems, no treatment may be necessary. If the problems are moderate, medications may provide relief. Some of these work by making the prostate gland smaller. The herb saw palmetto is commonly used. If complete blockage occurs, a Davis catheter is usually left in place for a few days. Surgery is often needed for more severe problems. TURP is the prostate surgery for BPH which is done through the urethra. TURP stands for transurethral resection of the prostate. It involves cutting away chips from the prostate. It is done by removing chips so that they can come out through the penis. Techniques using heat, microwave and laser to remove the prostate blockage are also being used. HOME CARE INSTRUCTIONS Give yourself time when you urinate. Stay away from alcohol. Beverages containing caffeine such as coffee, tea and sadie can make the problems worse. Decongestants, antihistamines, and some prescription medicines can also make the problem worse. Follow up with your caregiver for further treatment as recommended. SEEK IMMEDIATE MEDICAL CARE IF: You develop increased pain with urination or are unable to pass your water. You develop severe abdominal pain, vomiting, a high fever, or fainting. You develop back pain or blood in your urine. MAKE SURE YOU: Understand these instructions. Will watch your condition. Will get help right away if you are not doing well or get worse. Document Released: 10/29/2006 Document Revised: 01/20/2013 Document Reviewed: [facility] Patient Information 2014 [employer] [facility]. No follow up information was provided. Extracted from: Title: Office Visit Note Author: Devendra Hardwick MD Date: 11/27/14 Assessment/Plan BPH (benign prostatic hyperplasia)
--- OUTSIDE RECORDS SUMMARY | 2017-04-08 12:27 | XMS REPORT | Referral Summary ---
Author Author [facility] Organization [facility] Address Unknown Phone Unavailable Care Team Providers Care Nurse Educator Name Role Phone Fly Gil Primary Care Physician [phone] Encounter Date(s): 05/31/15 - 05/31/15 [facility] [address] [address] Discharge Diagnosis: BPH (benign [...] DAY, # 90 caps, 3 Refill(s), eRx: [facility] #[id number], TAKE ONE CAPSULE BY MOUTH ONCE A [...] 10/29/2006 Document Revised: 07/01/2014 Document Reviewed: [facility] [place] Patient Information 2014 [employer] [facility]. No follow up information was provided. Extracted from: Title: Office Visit Note Author: Devendra Hardwick MD Date: 05/31/15 Assessment/Plan BPH (benign prostatic hyperplasia) Future Scheduled TestsReferral* Return to Clinic 02/16/15 12:16 PM Referrals to Other Providers Referred by: Jonathan White MD
--- OUTSIDE RECORDS SUMMARY | 2017-04-08 12:27 | XMS REPORT | Continuity of Care Document ---
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 - *Chronic Radiculitis, Thoracic or Lumbar - *Chronic Spinal stenosis of lumbar region - Chronic Sciatica Due To Displacement Of Lumbar Disc - Chronic Radiculitis, Thoracic or Lumbar - Chronic Pain in limb - *Acute Gout, unspecified [...] in limb - *Chronic BPH - *Chronic Routine Medical Exam - Routine Hypertension, Benign [...] - *Chronic Other specified urticaria - *Acute Family History Family Member Diagnosis Age At Onset Status Father (Unknown) CAD Yes Mother (Unknown) old age Yes Social History Social History Element Description Quantity Unknown Allergies, Adverse Reactions, Alerts Substance Reaction Severity Status PROCAINE HCL Unknown AZITHROMYCIN hives rash Unknown Medications Medication Instructions Dosage Effective Dates (start - stop) Status atorvastatin 40 mg tablet take 1 tablet (40MG) by oral route every day 40 MG - Active bisoprolol 5 mg-hydrochlorothiazide 6.25 mg tablet Take 1 tablet by mouth every day. - Active Immunizations Vaccine Date Status Comments Unknown Results Test Name Date and Time Measure Units Reference Range Abnormal Flag Comments Unknown Vital Signs Date / Time: Height Weight Pulse Rate Blood Pressure Temperature /07:34:00 71.00 in 229.00 lbs 48 /min 147/71 mm[Hg] 97.7 F Procedures Procedure Date Unknown Encounters Encounter Location Date Patient Visit [facility] Pain Patient Visit [facility] Patient Visit [facility] Patient Visit [facility] Patient Visit [facility] ENT Patient Visit [facility] Patient [facility] Patient Visit [facility] Patient Visit [facility] Patient Visit [facility] Patient [facility] Patient [facility]NT Patient Visit [facility] Patient Visit [facility] Patient Visit [facility] Patient Visit [facility] Care Patient Visit [facility] Patient Visit [facility] Patient Visit [facility] Advance Directives Directive Effective Date Unknown
[2017-04-08 12:30] VITALS: TEMP 98.2; Ht 180.3 cm; Wt 104.1 kg
--- OUTSIDE RECORDS SUMMARY | 2017-04-08 12:42 | XMS REPORT | Continuity of Care Document ---
Author Author Rob [facility] Organization [facility] Address Unknown Phone Unavailable Support Name Relationship Address Phone FRANK WALTON MD Caregiver [address] [place] [phone] CARLITOS VICENTE MD Caregiver [address] [phone] SIMIN GARCIA Next Of Kin [address] [place] [address] Insurance Providers Payer Name Policy Number Subscriber Name Relationship Medicare [id number] Ramon Garcia 19 Self Blue Cross Select Plan 65 [id number] Ramon Garcia 19 Self Problems Medical Problems [...] F (96.8 - 99.1) Temperature (Calculated Celsius) 36.02944 degrees C (36.0 - 37.3) Pulse Rate [...] Has specimen been collected/obtained? Y Urine Specific Clark September 02, 2014 2:30am 1.025 - Has [...] Report July 31, 2013 12:41pm [facility] [id number] - Glomerular Filtration Rate Calc February 09, 2012 7:49am 97 - Procedures No known history of procedures. Encounters Encounter Location Date/Time Departed Emergency Room [facility] 09/02/14 10:53pm Departed Emergency Room [facility] 09/02/14 1:52am Recent Diagnosis
--- OUTSIDE RECORDS SUMMARY | 2017-04-08 12:42 | XMS REPORT | Continuity of Care Document ---
Author Author [facility] Organization [facility] Address Unknown Phone Unavailable Allergies Active Description [...] 6.0 NA 5.0-8.0 Protein Negative Negative Specific [place] 1.020 NA 1.003-1.030 UA Collection type Voided NA Urobilinogen 0.2 mg/dL <1.0 Urine Microscopic - 01/15/17 09:08 Epithelial Cells 2 /HPF Hyaline Casts 4 /LPF 0-3 RBC, Urine 0 /HPF 0-4 WBC, Urine 5 /HPF 0-4 Encounters ACCT No. Visit Date/Time Discharge Status Pt. Type Provider Facility Loc./Unit Complaint [id number] 02/02/2014 15:59:00 02/02/2014 23 :59:59 [facility] Outpatient [id number] 09/02/2013 07:23:00 09/02/2013 23 :59:59 [facility] Outpatient
[2017-04-08] MEDS ORDERED: GLUC100015 PO (12:49)
[2017-04-08] MEDS ORDERED: LISI10TA7 PO (12:51)
[2017-04-08] MEDS ORDERED: ATOR10TA64 PO (12:51)
[2017-04-08] MEDS ORDERED: CEPH500C2 PO (12:51)
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
[2017-04-08 13:05] LABS: BASOPHILS # (AUTO) 0.1 T/MM3 (0-0.2); BASOPHILS % (AUTO) 0.6 % (0-2); EOSINOPHILS # (AUTO) 0.2 T/MM3 (0-0.5); EOSINOPHILS % (AUTO) 1.9 % (0-4); HCT - HEMATOCRIT 44.7 % (41-53); HGB - HEMOGLOBIN 14.8 GM/DL (13.5-17.5); IMMATURE GRANULOCYTE # (AUTO) 0.01 T/MM3 (0.00-0.03); IMMATURE GRANULOCYTE % (AUTO) 0.1 % (0.0-0.5); LYMPHOCYTES # (AUTO) 1.6 T/MM3 (1-4.8); LYMPHOCYTES % (AUTO) 19.5 % (23-45); MEAN CORPUSCULAR HGB 30.6 UUG (26-34); MEAN CORPUSCULAR HGB CONC(MCHC 33.1 GM/DL (31-37); MEAN CORPUSCULAR VOLUME 92.4 UM3 (80-100); MEAN PLATELET VOLUME 8.7 UM3 (9.4-12.4); MONOCYTES # (AUTO) 0.6 T/MM3 (0-0.8); MONOCYTES % (AUTO) 7.5 % (0-9.0); NEUTROPHILS #(AUTO)-ABSOLUTE 5.9 T/MM3 (1.8-7.7); NEUTROPHILS % (AUTO) 70.4 % (33-66); RED BLOOD COUNT 4.84 M/MM3 (4.50-5.90); WBC - WHITE BLOOD COUNT 8.4 T/MM3 (4.5-11.0)
[2017-04-08 13:13] LABS: ALBUMIN/GLOBULIN RATIO 1.4 RATIO (1.1-2.2); ALKALINE PHOSPHATASE 117 U/L (38-126); ALT (SGPT) 37 U/L (21-72); ANION GAP 13 MEQ/L (5-15); AST (SGOT) 20 U/L (17-59); BUN/CREATININE RATIO 20 RATIO (6-26); CALCIUM 9.3 MG/DL (8.4-10.2); CHLORIDE 107 MEQ/L (98-107); CO2 - CARBON DIOXIDE 24 MEQ/L (22-30); CREATININE 0.8 MG/DL (0.8-1.5); GLOMERULAR FILTRATION RATE 96; GLUCOSE 123 MG/DL (75-110); POTASSIUM 4.5 MEQ/L (3.6-5); SODIUM 144 MEQ/L (134-144); TOTAL PROTEIN 6.9 G/DL (6.3-8.2)
--- NOTE | 2017-04-08 13:49 | NUR ---
PROVIDER DR MANNING TO BEDSIDE TO DISCUS RESULTS AND POC
[2017-04-08] MEDS ORDERED: SULF1TAB42 PO (14:09)
[2017-04-08 14:22] VITALS: BP 127/60; PULSE 69; RESP 19; O2SAT 95
== END 2017-04-08 14:22 | disposition home or self-care (01) ==
LOC: ED 12:22
DX: M70.31 Other bursitis of elbow, right elbow (principal); Y93.89 Activity, other specified
CPT/HCPCS: 36415; 80053; 85025; 86140

== ENCOUNTER 2017-12-06 05:26 | Inpatient (IN) ==
[2017-12-06 05:50] VITALS: BMI 32.3
[2017-12-06] MEDS ORDERED: ACETAMINOPHEN 500 MG TABLET PO ONE (06:00)
[2017-12-06] MEDS ORDERED: LIDOCAINE 1% (10mg/ml) 2mL INJ PF SDV ID ONE (06:00)
[2017-12-06] MEDS ORDERED: METOCLOPRAMIDE 10mg/2ml INJECTION IVP ONE (06:00)
[2017-12-06] MEDS ORDERED: ONDANSETRON 4 MG/2 ML INJECTION IVP ONE (06:00)
[2017-12-06] MEDS ORDERED: FAMOTIDINE PB 20 MG/50 ML BAG IV ONE (06:00)
[2017-12-06] MEDS ORDERED: TRANEXAMIC ACID 1,000 MG in NS 100 ML IV ONE ×2 (06:00→07:00)
[2017-12-06] MEDS ORDERED: DEXAMETHASONE 4 MG/ML INJECTION IVP ONE (06:00)
[2017-12-06] MEDS ORDERED: MELOXICAM 15 MG TABLET PO ONE (06:00)
[2017-12-06] MEDS ORDERED: CEFAZOLIN 2 G in NS 100 ML IV ONE (06:14)
[2017-12-06] MEDS: LR 1,000 ML IV SCH ×2 (06:25→08:13)
[2017-12-06] MEDS ORDERED: VANCOMYCIN 1,000 MG INJECTION ONE (06:27)
[2017-12-06] MEDS: NOZIN NASAL SWAB NAS SCH ×5 (06:31→21:45)
--- NOTE | 2017-12-06 06:52 | Anesthesia Preoperative Report ---
Anesthesia Preoperative Record - Date and Time Date: 12/06/17 Preoperative Diagnosis: Rt BHANU M16.11 Proposed Procedure: Right BHANU NPO Since Date: 12/05/17 NPO Since Time: 22:00 Allergies/Adverse Reactions: Allergies Allergy/AdvReac Type Severity Reaction Status Date / Time azithromycin Allergy Unknown Hives Verified 12/06/17 06:12 procaine Allergy Unknown elevated BP Verified 12/06/17 06:12 Muqhcyj-Znx-Vaa Reductase AdvReac Unknown Myalgia Verified 12/06/17 06:12 Inhibitor - Vital Signs Vital Signs: Temperature 98.2 F 12/06/17 05:49 Pulse Rate 84 12/06/17 06:15 Respiratory Rate 13 12/06/17 05:49 Blood Pressure 134/62 12/06/17 05:49 Pulse Oximetry 93 12/06/17 05:49 Height and Weight: Height 5 ft 11 in Weight 105 kg Body Mass Index 32.3 - Medications Inpatient Medications: Current Medications Epinephrine HCl 0.25 mg/Bupivacaine HCl 30 ml/Morphine Sulfate 15 mg/Ketorolac Tromethamine 60 mg/Sodium Chloride 65.25 mls @ 1 mls/hr OPSITE INTRAOP ONE PRN Reason: Protocol Stop: 12/09/17 01:14 Tranexamic Acid 1,000 mg/ (Sodium Chloride) 110 mls @ 660 mls/hr IV INTRAOP ONE Stop: 12/06/17 07:09 Lactated Ringer's (Lactated Ringers) 1,000 mls @ 50 mls/hr IV .Q20H [facility] Last Admin: 12/06/17 06:25 Dose: 50 mls/hr Isopropyl Alcohol (Nozin Nasal Swab) 1 each RJ Q1M [facility] Stop: 12/06/17 15:48 Last Admin: 12/06/17 06:39 Dose: 1 each Sodium Chloride (Iv Flush) 10 - 80 ml IV PRN PRN PRN Reason: Flushing Home Medications: Home Medications Medication Instructions Recorded Confirmed Type Lisinopril 10 mg PO DAILY #0 04/08/17 12/06/17 History Advil (Ibuprofen) 200 mg capsule 400 mg PO Q6HPRN PRN cap 10/15/17 12/06/17 History aspirin 81 mg chewable tablet 81 mg PO DAILY tab 10/15/17 12/06/17 History Is Patient on Beta Tito?: No - Medical History Respiratory: DENIES: Asthma, Bronchitis, Chronic Obstructive Pulmonary Disease (COPD), Dyspnea, Orthopnea, Pulmonary Embolism, Pneumonia, Upper Respiratory Infection, Pulmonary Edema, Sleep Apnea, Tuberculosis, Other Cardiovascular: Reports: Abnormal EKG (referred to Dr Mason), Hypertension DENIES: Angina, Arrhythmia, Congestive Heart Failure, Coronary Artery Disease , Heart Murmur, Hypotension, High Cholesterol, Myocardial Infarction, Rheumatic Fever, Valvular Heart Disease, Other Gastrointestional: DENIES: Obstructive Bowel, Hepatitis, Cirrhosis, Nausea or Vomiting Present, Gastroesophageal Reflux Disease, Gastrointestinal Bleeding, Hiatal Hernia, Ulcer , Morbid Obesity, Other Neuro/Musculoskeletal: Reports: HX.MS.OSAR, Back Problems (DDD) Denies: Cerebrovascular Accident, Depression, Headaches, Loss of Consciousness, Muscle Weakness, Neuromuscular Disorder, Paralysis, Paresthesia, Syncope, Seizures, Other Renal/Endocrine: DENIES: Diabetes Mellitus Type 1, Diabetes Mellitus Type 2, Renal Failure, Dialysis, Thyroid Disease, Weight Loss, Weight Gain, Other Other History: Reports: Other (former tobacco chewer) DENIES: Anesthesia Reactions, Now, Blood Transfusions, Chemotherapy , Cancer, Hemophilia, Malignant Hyperthermia, Sickle Cell Disease - Surgical History HEENT Surgeries: Reports: Other (sinus surgery) Surgery/Treatment: REPORT: Transurethral Resection (TURP-2013) Anesthesia Reactions: None Hx Family Anesthesia Reaction: No History of Motion Sickness: No - Social History Smoking Status: Former smoker Hx Chewing Tobacco Use: No Second Hand Exposure: No Substance Use Type: does not use Alcohol Intake: current Alcohol Intake Frequency: holidays/special occasions only - Pertinent Findings EKG: Sinus Rhythm - Physical Exam Respiratory Exam: Present: lungs clear, bilateral breath sounds equal Cardiovascular Exam: Present: regular rate and rhythm, no murmur - Airway Assessment Mallampati Score: I TMD: 3 Fingerbreadths Neck Extension: good - ASA ASA Score: 2 - Plan Regional/Trunk Block: Spinal - Discussion Discussion: Discussed risks/options/alternatives of anesthesia and questions answered. Patient consents. Nursing pain assessment noted. Present for Discussion: spouse Attestation Statement: Prior to the delivery of any anesthetic medication, I examined the patient, developed the plan, obtained the patient's consent and discussed the risk and benefits of the procedure with the patient/guardian. - Additional Information Seen by Anesthesia: Yes
[2017-12-06] MEDS ORDERED: CEFAZOLIN 1 G INJECTION IVP ONE (07:00)
[2017-12-06] MEDS ORDERED: FentaNYL 100 MCG/2 ML INJECTION ONE (07:06)
[2017-12-06] MEDS ORDERED: MIDAZOLAM 2mg/2ml INJECTION ONE (07:06)
[2017-12-06] MEDS ORDERED: PROPOFOL 500 MG/50 ML VIAL ONE (07:07)
[2017-12-06] MEDS ORDERED: KETAMINE 500 MG/10 ML INJECTION ONE (07:08)
[2017-12-06] MEDS ORDERED: VANCOMYCIN 1,000 MG INJECTION IAR ONE (07:45)
[2017-12-06] MEDS ORDERED: EPINEPHrine PF 0.25 MG, BUPIVACAINE 0.25% PF 30 ML, MORPHINE SULFATE 15 MG, KETOROLAC I... OPSITE ONE (08:00)
--- NOTE | 2017-12-06 08:55 | Operative Note ---
- Procedure Preoperative Diagnosis: Right hip primary degenerative joint disease Postoperative Diagnosis: Same as preoperative diagnosis. Surgeon: Betzaida Miller MD Explosive Ordnance Manager: Carlos Herrera Complications: None. Anesthesia: Spinal. Estimated Blood Loss: See Anesthesia Record. Fluids: Please see Anesthesia Record. Description of Procedure: Mr. Garcia and his right hip were identified and marked in the preoperative holding area. He was brought back to the operating suite and spinal anesthetic was administered. He was then placed in a lateral decubitus position with his right hip up. The right lower extremity was prepped and draped in my normal sterile fashion. Timeout was performed. The [employer] robotic arm was used to assist with the surgery. A pelvic array was placed into the iliac crest through three small incisions. A posterior approach was utilized. An approximately 13 cm incision was made in the skin and dissection carried down to the muscle fascia which was then split in line with skin incision. A Charnley retractor was placed. The short external rotators were identified and tagged and detached. A capsulotomy was performed and the hip dislocated. A femoral neck osteotomy was performed at the pre-templated level measuring down from the femoral head 56 mm. The head was removed and acetabulum exposed. Labrum was removed. The acetabulum was then registered with the robot. The robotic arm was then used to ream with a 53 reamer. The robot then was again used to place a 54 Trident cup in 40 of tilt and 25 of anteversion. A liner was then placed. The proximal femur was exposed and prepared with a cookie cutter followed by reaming and broaching to a size 7. We trialed with a standard head. After thorough irrigation a final Accolade 2 size 7 stem with 127 neck was placed. Leg length and offset were checked with the robot and were good. A final standard ceramic head was placed and the hip reduced. Betadine solution was used to irrigate throughout the case. It was followed by normal saline irrigation. Joint cocktail was injected throughout soft tissue. The capsulotomy was repaired with Ethibond. Short external rotators were also repaired with Ethibond. 1 g of vancomycin powder was placed into the wound. The muscle fascia was then repaired with #1 Vicryl. I then left my assistant director of residence life to close the subcutaneous tissue with 2-0 Vicryl followed by running 4-0 Monocryl skin followed by Dermabond and a sterile dressing. The patient with any placed back into supine position and taken to recovery room in the care of anesthesia.
--- NOTE | 2017-12-06 09:49 | XRay Report ---
EXAM: XR pelvis w/ 1 view RT hip COMPARISON: 12/01/2017 CT pelvis. 10/15/2017 right hip radiographs. HISTORY:Postop right BHANU. postoperative image . FINDINGS: Single view of the pelvis and frog-leg lateral view of the right hip was obtained. A right total hip prosthesis is in place with the femoral and acetabular components intact and appearing to be in good position and alignment. The superior and inferior rami and sacral arches are intact. The proximal left femur is intact. IMPRESSION: Unremarkable appearance to the right hip prosthesis which appears to be good position and alignment. LOCATION OF DICTATION: [facility] [place] .
[2017-12-06] MEDS ORDERED: NAPROXEN 220 MG TABLET PO PRN (10:03)
[2017-12-06] MEDS ORDERED: NOZIN NASAL SWAB NAS ONE (10:03)
[2017-12-06] MEDS ORDERED: DiphenhydrAMINE 25 MG CAPSULE PO PRN (10:03)
[2017-12-06] MEDS ORDERED: DiphenhydrAMINE 50 MG/ML INJECTION IVP PRN (10:03)
[2017-12-06] MEDS ORDERED: ONDANSETRON 4 MG/2 ML INJECTION IVP PRN (10:03)
[2017-12-06] MEDS ORDERED: NS 1,000 ML IV SCH (10:03)
[2017-12-06] MEDS ORDERED: LORazepam 1 MG TABLET PO PRN (10:03)
[2017-12-06] MEDS ORDERED: FALL RISK - PHARMACY CONSULT XX ONE (10:18)
[2017-12-06] MEDS: DOCUSATE SODIUM 100 MG CAPSULE PO SCH ×2 (11:43→21:47)
[2017-12-06] MEDS: POLYETHYL GLYCOL 3350 17gm PACKET PO SCH (11:43)
[2017-12-06] MEDS: ACETAMINOPHEN 325 MG TABLET PO SCH ×4 (11:43→21:45)
[2017-12-06] MEDS: DEXAMETHASONE 20 MG/5 ML INJECTION IVP SCH ×2 (15:09→22:44)
[2017-12-06] MEDS: CEFAZOLIN 2 G in NS 100 ML IV SCH ×2 (15:14→22:44)
--- NOTE | 2017-12-06 15:24 | Anesthesia Postoperative Note ---
- Date and Time Date: 12/06/17 Time: 15:20 - Status Patient Participated in Evaluation: Patient Participated in Person Vital Signs: Temperature 97.6 F 12/06/17 10:16 Pulse Rate 87 12/06/17 14:03 Respiratory Rate 18 12/06/17 10:16 Blood Pressure 144/69 H 12/06/17 14:03 Pulse Oximetry 94 12/06/17 14:03 Respiratory Function: Airway Patent, Regular Respirations Cardiovascular Function: Regular Pulse Mental Status: Alert and Oriented Pain Intensity: 3 Hydration: Taking PO Fluids Complications During Recover: None Apparent - Follow-Up Instructions Instructions: Per Surgeon
[2017-12-06] MEDS ORDERED: SALINE FLUSH 10ml SYRINGE IV PRN (15:39)
[2017-12-06] MEDS: Oxycodone *IR* 5 MG TABLET PO PRN ×3 (17:10→22:43)
--- NOTE | 2017-12-06 18:14 | Consult Note ---
Consult Information - Data of Consult Consult date: 12/06/17 Requesting Physician: Prasanna Miller MD Primary Care Provider: Fer Gil MD Family Provider: Fer Gil MD - Consult Narrative Reason for consult: Acute urinary retention History of present illness: Ramon is a pleasant 72 yr old male who was admitted today for a planned right total hip arthoplasty under the care of Dr Miller. The procedure went well however postoperatively he had urinary retention. Upon bladder scanning he was noted to have approximately 1 liter of urine in his bladder. Nursing staff attempted to straight catheter. Patient initially followed by [address] White catheter that were unsuccessful. The hospitalist services were consulted for further evaluation and recommendations. Given there was no available urologist for consultation. White catheter placement is attempted by myself using a 16 Thai coud catheter , however this was unsuccessful and met with resistance at the prostate. Patient is able to void several small amounts of 50 ML of urine each time. Past Medical History Patient Stated Medical History Hypertension BPH with hx of requiring white cath post-op Hyperlipidemia Osteoarthritis Surgical History: sinus surgery-2010. TURP-2013 Family History Updates: Family History. Mother. Skin cancer. Maternal Grandmother. Arthritis - Social History Smoking status: Current every day smoker Substance use type: does not use Alcohol intake frequency: does not drink Housing: house Household members: spouse Current residence: Apartment/Private Home Social history: PCP- Dr Gil Review of Systems All systems PM: 10-point ROS was reviewed, no additional remarkable complaints except - Genitourinary Genitourinary: Present: as per [facility] Medications Home Medications Medication Instructions Recorded Confirmed Type Lisinopril 10 mg PO DAILY #0 04/08/17 12/06/17 History Advil (Ibuprofen) 200 mg capsule 400 mg PO Q6HPRN PRN cap 10/15/17 12/06/17 History aspirin 81 mg chewable tablet 81 mg PO DAILY tab 10/15/17 12/06/17 History Allergies Allergy/AdvReac Type Severity Reaction Status Date / Time azithromycin Allergy Unknown Hives Verified 12/06/17 06:12 procaine Allergy Unknown elevated BP Verified 12/06/17 06:12 Zdcovcx-Lmi-Dod Reductase AdvReac Unknown Myalgia Verified 12/06/17 06:12 Inhibitor Exam Vital Signs: Temperature 97.6 F 12/06/17 10:16 Pulse Rate 87 12/06/17 14:03 Respiratory Rate 18 12/06/17 10:16 Blood Pressure 144/69 H 12/06/17 14:03 Pulse Oximetry 94 12/06/17 14:03 Height/Weight/BMI: Height 1.8 m Weight 105 kg Body Mass Index 32.3 - Constitutional Present: no acute distress, well nourished, well developed - Routine HEENT Exam Eye: Present: EOMI ENT: Present: mucous membranes moist, dentition normal - Routine Respiratory Exam Absent: wheezes - Routine Cardiovascular Exam Absent: murmur - Routine Abdominal Exam Present: soft, normoactive bowel sounds, non distended. Absent: tenderness - Routine Exam Patient deferred: penile exam - Routine Extremities Exam Present: normal capillary refill - Routine Skin Exam Present: intact, dry, warm - Routine Neurological Exam Present: alert, oriented X3, CN II-XII intact, moving all extremities - Routine Psychiatric Exam Present: normal affect, cooperative Results - Labs CBC & Chem 7: 12/06/17 19:08 Assessment and Plan (1) Urinary retention due to benign prostatic hyperplasia Current visit: Yes Status: Acute Assessment and Plan: Impression Acute urinary retention due to BPH S/P Right hip arthroplasty- 12/06/17- Dr Miller Hypertension Hypercholesterolemia Impression Appreciate medical consultation from Dr. Miller. Unfortunately, there is no available urologic coverage at [facility] Multiple attempts with White catheter placement have been unsuccessful. At this point, we will start patient on Proscar 5 milligrams daily as well as Flomax daily. Check Renal function at this time. Discontinue all Benadryl as this will cause further retention Encourage bowel motivation, patient did receive MiraLAX and Colace, Asked nursing staff to also give Dulcolax suppository as this may help with retention. Encourage is that patient is voiding increments of 50 ML's at this time. If retention worsens overnight may need to consider emergent transfer to higher level facility with Urological coverage. Discussed with Dr. Miller, nursing staff and supervisors, attending, Dr. Quispe Appreciate consultation, we will continue to follow patient during his stay at [facility] DVT Prophylaxis: SCD's Resuscitation Status: Full Code - Physician Narrative Physician: Fitz Quispe MD Narrative: Date: 12/06/17 Time: 1999 Have independently interviewed and examined pt. Chart reviewed. Case discussed with my MOLDER OFFBEARER. Above care plan developed with my supervision; agree with above. Admitted for elective right hip surgery. Had extensive outpatient work up prior to admission-clear from a cardiopulmonary status. Tolerated surgery well. Post op, noted difficulty urinating. [place] urge to go, but very hard to produce urine. Does have Hx of TURP in 14 secondary to BPH. Report urinary status doing well prior to admission-some slowing of stream, but able to empty. No urgency at home. Bladder scanner with +900cc urine in bladder. Despite multiple attempt to insert White cath, no success. Lungs: clear CV: regular AB: soft nt/nd MSE: awake alert appropriate Plan: Attempted to consult with urology for White placement-none available currently. Will not have nursing try further attempts at White so as not to cause trauma. Dulcolax suppository to help decrease and constipation that could affect urine outflow. Start Proscar and Flomax to help urination. Checked BMP to assess creatinine - currently 0.9 which is close to his prior creatinine of 0.8 from 03/2017. Recheck BMP in am to monitor creatinine. Encourage urination. Will stop IVF and Benadryl. Urologic consult tomorrow if patient continues not to be able to empty bladder. Hospital Course Summary Disclaimer: The visit summary below is not to be considered part of the above Progress Note. Hospital Course: Impression Acute urinary retention due to BPH S/P Right hip arthroplasty- 12/06/17- Dr Miller Hypertension Hypercholesterolemia Impression Appreciate medical consultation from Dr. Miller. Unfortunately, there is no available urologic coverage at [facility] Multiple attempts with White catheter placement have been unsuccessful. At this point, we will start patient on Proscar 5 milligrams daily as well as Flomax daily. Check Renal function at this time. Discontinue all Benadryl as this will cause further retention Encourage bowel motivation, patient did receive MiraLAX and Colace, Asked nursing staff to also give Dulcolax suppository as this may help with retention. Encourage is that patient is voiding increments of 50 ML's at this time. If retention worsens overnight may need to conside emergent transfer to higher level facility with Urological coverage. Discussed with Dr. Miller, nursing staff and supervisors, attending, Dr. Quispe Appreciate consultation, we will continue to follow patient during his stay at [facility]
[2017-12-06] MEDS: TAMSULOSIN 0.4 MG CAPSULE PO SCH ×2 (18:18→21:48)
[2017-12-06] MEDS ORDERED: SENNOSIDES 8.6 MG TABLET PO SCH (21:00)
[2017-12-06] MEDS: ASPIRIN *EC* 81 MG TABLET PO SCH (21:44)
[2017-12-06] MEDS: FINASTERIDE 5 MG TABLET PO SCH (21:47)
[2017-12-07] MEDS: NOZIN NASAL SWAB NAS SCH ×2 (06:08→13:38)
[2017-12-07] MEDS: Oxycodone *IR* 5 MG TABLET PO PRN ×2 (06:46→13:37)
[2017-12-07] MEDS ORDERED: SENNOSIDES 8.6 MG TABLET PO PRN (07:14)
[2017-12-07 08:07] VITALS: O2SAT 93
--- NOTE | 2017-12-07 08:22 | Orthopedic Progress Note ---
Date: Date: 12/07/17 Time: 818 Subjective/Severity of Illness: Mr Garcia had a Rt BHANU 12/06/[address] Paul HOFFMANN He did well with surgery but developed some urinary retention post op. He has has surgical procedure on his prostate in the past. Several attempts at white placement failed including an attempt by Dr Quispe. Urology was unavailable so pt was started on Flomax and Proscar. He is doing better this AM. Voiding larger amounts with just some burning on urination. He has been mobile with good tolerance and pain is controlled. No other complaints or concerns this AM. Orthopedic Objective PO Vital signs: Temperature 97.1 F 12/07/17 08:00 Pulse Rate 78 12/07/17 08:00 Respiratory Rate 17 12/07/17 08:00 Blood Pressure 139/68 12/07/17 08:00 Pulse Oximetry 93 12/07/17 08:00 Height and Weight: Height 5 ft 11 in Weight 240 lb 8.389 oz Body Mass Index 32.3 - Constitutional General Appearance: Present: alert, cooperative, no acute distress - Respiratory Exam Present: non-labored - Cardiovascular Exam Present: pedal pulses intact - Extremities Exam Extremities: Present: pulses intact. Absent: calf tenderness - Surgical Site Incision: Mepilex dressing intact, bloody drainage present (Small drop of red blood at mid dressing. I circled this area this am.) - Neurological Exam Present: no deficits - Psychiatric Exam Present: alert, normal affect - Labs Result Diagrams: 12/07/17 04:09 12/07/17 04:09 Abnormal lab results 12/06/17 12/07/17 12/07/17 Range/Units 19:08 04:09 04:09 Hgb 13.2 L (13.5-17.5) GM/DL Hct 40.0 L (41-53) % Potassium 5.1 H 5.1 H (3.6-5) MEQ/L Carbon Dioxide 19 L (22-30) MEQ/L BUN 24.0 H 27.0 H (9-20) MG/DL BUN/Creatinine Ratio 27 H 30 H (6-26) RATIO Glucose 193 H 142 H (75-110) MG/DL H & H 12/07/17 Range/Units 04:09 Hgb 13.2 L (13.5-17.5) GM/DL Hct 40.0 L (41-53) % Orthopedic Assessment and Plan (1) Primary osteoarthritis of right hip Status: Acute Assessment and Plan: Current anti-coagulation protocol for VTE prophylaxis. SCD's. PT/OT services to improve independent function. Discharge Planning per Case Management. (2) Urinary retention due to benign prostatic hyperplasia Status: Acute Assessment and Plan: Hospitalist to eval this AM. He seems to be voiding better. Will see how he does thru the morning. - Anticoagulation Therapy Anticoagulation: ASA 81 mg PO BID x6 weeks Hospital Course Summary Disclaimer: The visit summary below is not to be considered part of the above Progress Note. Hospital Course: Impression Acute urinary retention due to BPH S/P Right hip arthroplasty- 12/06/17- Dr Miller Hypertension Hypercholesterolemia Impression Appreciate medical consultation from Dr. Miller. Unfortunately, there is no available urologic coverage at [facility] Multiple attempts with White catheter placement have been unsuccessful. At this point, we will start patient on Proscar 5 milligrams daily as well as Flomax daily. Check Renal function at this time. Discontinue all Benadryl as this will cause further retention Encourage bowel motivation, patient did receive MiraLAX and Colace, Asked nursing staff to also give Dulcolax suppository as this may help with retention. Encourage is that patient is voiding increments of 50 ML's at this time. If retention worsens overnight may need to conside emergent transfer to higher level facility with Urological coverage. Discussed with Dr. Miller, nursing staff and supervisors, attending, Dr. Quispe Appreciate consultation, we will continue to follow patient during his stay at [facility]
[2017-12-07] MEDS ORDERED: LISINOPRIL 10 MG TABLET PO SCH (09:00)
--- NOTE | 2017-12-07 09:39 | Progress Note ---
- Date 12/07/17 Subjective: Ramon is seen this morning in follow up. He is up in the chair and reports that he is feeling good. Fortunately he was able to void overnight and does not feel he is having any difficulty with voiding. He does report of having some burning with urination. Isaías having hip pain currently at rest. No shortness of breath or chest pain. Objective Vital signs: Temperature 97.1 F 12/07/17 08:00 Pulse Rate 78 12/07/17 08:00 Respiratory Rate 17 12/07/17 08:00 Blood Pressure 139/68 12/07/17 08:00 Pulse Oximetry 93 12/07/17 08:00 Height/Weight/BMI: Height 1.8 m Weight 109.1 kg Body Mass Index 32.3 - Constitutional Present: no acute distress, well nourished, well developed - Routine HEENT Exam Eye: Present: EOMI ENT: Present: mucous membranes moist, dentition normal - Routine Respiratory Exam Present: CTA bilaterally. Absent: wheezes - Routine Cardiovascular Exam Present: RRR, S1, S2. Absent: murmur - Routine Abdominal Exam Present: soft, normoactive bowel sounds, non distended. Absent: tenderness - Routine Extremities Exam Present: no edema, pulses intact - Routine Skin Exam Present: intact, dry, warm - Routine Neurological Exam Present: alert, oriented X3, CN II-XII intact - Routine Lymphatic Exam Lymphatic: Absent: adenopathy - Routine Psychiatric Exam Present: normal affect, cooperative Results - Labs CBC & Chem 7: 12/07/17 04:09 12/07/17 04:09 Assessment and Plan (1) Urinary retention due to benign prostatic hyperplasia Current visit: Yes Status: Acute Assessment and Plan: Impression Acute urinary retention due to BPH S/P Right hip arthroplasty- 12/06/17- Dr Miller Hypertension Hypercholesterolemia Impression Orthopedic management as per Dr. Miller. Fortunately, postoperative urinary retention has improved overnight. He does continue on finasteride and Flomax as scheduled At time of discharge, would recommend continuing on Flomax at HS given underlying BPH. Continue to be aggressive with bowel motivation as this can affect urinary retention. Bowels moved today. Morning labs reviewed, mild hyperkalemia, continue to monitor Encourage work with PT and OT for postoperative strengthening Appreciate medical consultation. Time of discharge medical care will return to PCP Dr. Gil DVT Prophylaxis: SCD's Resuscitation Status: Full Code - Physician Narrative Physician: Fitz Quispe MD Narrative: Date: 12/07/17 Time: 1325 Have independently interviewed and examined pt. Chart reviewed. Case discussed with my GUILLOTINE OPERATOR. Care plan developed with my supervision; agree with above. Doing very well this afternoon. Urinating well-can empty bladder. Tolerating Proscar and Flomax. Post op pain controlled. Did well with therapy. Breathing well. Eating well. No nausea or ab pain. Passing flatus-had stool last night. Lungs: clear CV: regular AB: soft nt/nd +BS MSE: awake alert appropriate Plan: Continue with supportive post op pain. Would continue Flomax for 1 week post discharge. Medically improving. Hospital Course Summary Disclaimer: The visit summary below is not to be considered part of the above Progress Note. Hospital Course: Impression Acute urinary retention due to BPH S/P Right hip arthroplasty- 12/06/17- Dr Miller Hypertension Hypercholesterolemia Impression Appreciate medical consultation from Dr. Miller. Unfortunately, there is no available urologic coverage at [facility] Multiple attempts with Davis catheter placement have been unsuccessful. At this point, we will start patient on Proscar 5 milligrams daily as well as Flomax daily. Check Renal function at this time. Discontinue all Benadryl as this will cause further retention Encourage bowel motivation, patient did receive MiraLAX and Colace, Asked nursing staff to also give Dulcolax suppository as this may help with retention. Encourage is that patient is voiding increments of 50 ML's at this time. If retention worsens overnight may need to conside emergent transfer to higher level facility with Urological coverage. Discussed with Dr. Miller, nursing staff and supervisors, attending, Dr. Quispe Appreciate consultation, we will continue to follow patient during his stay at [facility] 12/07 Orthopedic management as per Dr. Miller. Fortunately, postoperative urinary retention has improved overnight. He does continue on finasteride and Flomax as scheduled At time of discharge, would recommend continuing on Flomax at given underlying BPH. Continue to be aggressive with bowel motivation as this can affect urinary retention. Bowels moved today. Morning labs reviewed, mild hyperkalemia, continue to monitor Encourage work with PT and OT for postoperative strengthening Appreciate medical consultation. Time of discharge medical care will return to PCP Dr. Gil
[2017-12-07] MEDS: ASPIRIN *EC* 81 MG TABLET PO SCH (10:22)
[2017-12-07] MEDS: ACETAMINOPHEN 325 MG TABLET PO SCH ×2 (10:22→13:37)
[2017-12-07] MEDS: FINASTERIDE 5 MG TABLET PO SCH (10:22)
[2017-12-07] MEDS: DOCUSATE SODIUM 100 MG CAPSULE PO SCH (10:23)
[2017-12-07] MEDS: POLYETHYL GLYCOL 3350 17gm PACKET PO SCH (10:23)
[2017-12-07 13:18] VITALS: BP 133/67; PULSE 69; RESP 14
[2017-12-07 13:36] VITALS: TEMP 97.5
--- NOTE | 2017-12-07 14:28 | Discharge Summary ---
Orthopedic Discharge Info Date of admission: 12/06/17 05:26 Primary care physician: Fer Gil MD Attending Physician: Prasanna Miller MD Consults: 12/06/17 05:38 Consult to Anesthesiology [CONS] Routine Reason For Exam: Preoperative Assessment 12/06/17 10:03 Case Management Consult [CONS] Routine Reason For Exam: Discharge Planning DME-Walker [CONS] Routine Height: 5 ft 11 in Weight: 231 lb 7.766 oz Total Joint Outpatient Therapy [CONS] Routine Comment: Remove dressing in 2 weeks 12/06/17 17:15 Physician Consult [CONS] Routine Consulting Provider: Adrian Foster Reason For Exam: Bladder retention/Davis Insertion Ordering Provider has Notified Silverer: Yes 12/06/17 18:09 Physician Consult [CONS] Routine Consulting Provider: Fitz Quispe Reason For Exam: Urinary retention Ordering Provider has Notified Silverer: Yes - Discharge Diagnosis (1) Primary osteoarthritis of right hip Status: Acute (2) Urinary retention due to benign prostatic hyperplasia Status: Acute - Procedures Procedures: Rt BHANU 12/06/17 - Laboratory Result Diagrams: 12/07/17 04:09 12/07/17 04:09 Laboratory: Abnormal lab results 12/06/17 12/07/17 12/07/17 Range/Units 19:08 04:09 04:09 Hgb 13.2 L (13.5-17.5) GM/DL Hct 40.0 L (41-53) % Potassium 5.1 H 5.1 H (3.6-5) MEQ/L Carbon Dioxide 19 L (22-30) MEQ/L BUN 24.0 H 27.0 H (9-20) MG/DL BUN/Creatinine Ratio 27 H 30 H (6-26) RATIO Glucose 193 H 142 H (75-110) MG/DL H & H 12/07/17 Range/Units 04:09 Hgb 13.2 L (13.5-17.5) GM/DL Hct 40.0 L (41-53) % Orthopedic Discharge HPI - HPI Comments This patient was admitted for elective surgical tx of end stage degenerative joint disease that failed to respond to conservative treatment. Further details of this is found in the admission H&P. Orthopedic Hospital Course Hospital course: 12/07/17 14:25 After appropriate preoperative clearance and signing of operative consent, the patient was given IV antibiotics, according to orthopedic protocol. The patient was taken to the operating room and underwent elective right total hip arthroplasty. Following surgery, antibiotics were discontinued less than 24 hours according to joint protocol. Aspirin was initiated and SCDs added for DVT prevention. The dressing was clean, dry, and intact. He developed some urinary retention post op and there was difficulties placing a Davis cath. He was given Proscar and Flomax. His symptoms gradually resolved and he was voiding normally at discharge. Pain control was obtained via multimodal approach. Bowel motivation addressed with scheduled and PRN medications. Early mobilization was initiated through PT services. Discharge arrangements made by a collaborative effort between the patient and Case Management. Follow-up is scheduled in 2-3 weeks. Discharge instructions given by orthopedic providers and nursing staff at discharge. Discharge condition was good. Care extended to > 2 midnight stays?: No Discharge Plan - Med Rec/Dispo Referrals/Follow Up: Prasanna Miller MD [Physician] - 01/02/18 9:15 am Additional Instructions: [facility] ON 12/10/2017 AT 8:00AM FOR PHYSICAL THERAPY EVAL. PLEASE COMPLETE THE PAPERWORK IN THE [facility] [place] [facility] PRIOR TO THE APPOINTMENT. PHONE [phone] Prescriptions: New Acetaminophen [Tylenol] 650 mg PO QID tablet Aspirin *EC* [Ecotrin] 81 mg PO BID tablet Docusate Sodium [Colace] 100 mg PO BID capsule Milk of Magnesia [Mom] 30 ml PO DAILY udc Oxycodone *IR* [Roxicodone *Ir*] 5 - 15 mg PO Q3H PRN #60 tab PRN Reason: Breakthrough Pain Tamsulosin [Flomax] 0.4 mg PO HS #30 cap PEG 3350 17gm PACKET [Miralax] 17 gm PO DAILY packet Continue Lisinopril 10 mg PO DAILY #0 Advil (Ibuprofen) 200 mg capsule 400 mg PO Q6HPRN PRN cap PRN Reason: Pain ergocalciferol (vitamin D2) 50,000 unit capsule 50,000 unit PO DAILY #2 cap Discontinued aspirin 81 mg chewable tablet 81 mg PO DAILY tab - Disposition 01 Discharged Home, Self-Care - Dismissal Complete Discharge Instructions are:: Complete
[2017-12-08] MEDS ORDERED: BISACODYL 10 MG SUPPOSITORY RECTALLY SCH (20:00)
== END 2017-12-07 15:30 | disposition home or self-care (01) | DRG 470 ==
LOC: NMC.PERIOP 05:26 → SRG 10:08
PROVIDERS: ADMIT Orthopaedic Surgery; ATTEND Orthopaedic Surgery